=== PATIENT | male | born 2000 | race Two or more races ===

== ENCOUNTER 2019-05-24 19:48 | Emergency (ER) | payer SELFPAY ==
[~2019-05-24] VITALS: Ht 175.3 cm; Wt 79.4 kg
[2019-05-24] MEDS ORDERED: DERMOPLAST 60ML BOTTLE TOP ONE (22:00)
[2019-05-24] MEDS ORDERED: BACLOFEN 10 MG TAB PO ONE (22:15)
[2019-05-24] MEDS ORDERED: HYDROcodone-ACET 10/325MG TAB PO ONE (22:15)
[2019-05-24] MEDS ORDERED: cefTRIAXone SOD 1,000 MG VL IM ONE (22:15)
[2019-05-24 22:46] VITALS: BP 121/85
== END 2019-05-24 23:25 | disposition home or self-care (01) ==
LOC: ER 19:53
DX: S50.811A Abrasion of right forearm, initial encounter (principal); S90.511A Abrasion, right ankle, initial encounter; S90.811A Abrasion, right foot, initial encounter; X58.XXXA Exposure to other specified factors, initial encounter; Y93.89 Activity, other specified; Y92.89 Other specified places as the place of occurrence of the external cause; Y99.8 Other external cause status
CPT/HCPCS: 73030; 73070; 73130; 96372; 99283; J0696